=== PATIENT | female | born 1995 | race Caucasian/White ===

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

== ENCOUNTER 2017-02-08 03:14 | Emergency (ER) | payer OTHER ==
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
--- NOTE | 2017-02-08 05:20 | ED ORDER SUMMARY ---
..... Patient: BRIAN GARZA OrderSheet [facility] VisitID: [id number] [place] [address] 21y, F Registration Date/Time: 02/08/2017 ORDER SHEET Weight: 71.6 kg (stated) Allergies: No Known Drug Allergy GENERAL ORDERS: CT Abd/Pel w Cont (No) (N/A) Urgent (03:48 02/08/2017 Gaston Welch) (Ack 3:56 CHagerty ER Roller Repairer) (4:19 RFay) CBC w Diff Urgent (03:49 02/08/2017 Gaston Welch) (Ack 3:56 Kami ER Roller Repairer) (4:11 JQuivey R.N.) CMP Urgent (03:49 02/08/2017 Gaston Welch) (Ack 3:56 CHagerty ER Roller Repairer) (4:11 JQuivey R.N.) UA-Culture if indicated Urgent (03:49 02/08/2017 Gaston Welch) (Ack 3:56 CHagerty ER Roller Repairer) (4:11 JQuivey R.N.) PT with INR Urgent (03:49 02/08/2017 Gaston Welch) (Ack 3:56 CHagerty ER Roller Repairer) (4:11 JQuivey R.N.) PTT Urgent (03:49 02/08/2017 Gaston Welch) (Ack 3:56 CHagerty ER Roller Repairer) (4:11 JQuivey R.N.) Lipase Urgent (03:49 02/08/2017 Gaston Wlech) (Ack 3:56 CHagerty ER Roller Repairer) (4:11 JQuivey R.N.) Urine Urgent (03:49 02/08/2017 Gaston Welch) (Ack 3:56 CHagerty ER Roller Repairer) (4:11 JQuivey R.N.) Type & Screen Urgent (03:49 02/08/2017 Gaston Welch) (Ack 3:56 CHagerty ER Roller Repairer) (4:11 JQuivey R.N.) Pulse oximeter (03:49 02/08/2017 Gaston Welch) (4:11 JQuivey R.N.) Ice (03:49 02/08/2017 Gaston Welch) (3:51 JLay R.N.) MEDICATION ORDERS: Keflex PO 500 mg (NOW) (05:21 02/08/2017 Gaston Welch) (Ack 5:23 JQuivey R.N.) (5:37 JDeElena R.N.) IV FLUIDS: IV NS : initial bolus 1000 mL (1000 mL/hr), then none - for X1 (NOW) (03:49 02/08/2017 Gaston Welch) (Ack 3:51 JDeElena R.N.) (4:10 JQuivey R.N.) Morphine IV 4 mg (HIGH ALERT MEDICATION, NOW) (03:49 02/08/2017 Gaston Welch) (Ack 3:52 JDeElena R.N.) (4:11 JQuivey R.N.) ORDER SHEET NOTES: [Electronically signed by Charli Chun R.N. (05:37 02/08/2017)] [Electronically signed by Dandy Esquivel Dr. (05:39 02/08/2017)] [Electronically locked/signed by Charli Chun R.N. (05:37 02/08/2017)]
--- NOTE | 2017-02-08 05:20 | ED ORDER SUMMARY ---
..... Patient: BRIAN GARZA OrderSheet [facility] VisitID: [id number] [place] [address] 21y, F Registration Date/Time: 02/08/2017 ORDER SHEET Weight: 71.6 kg (stated) Allergies: No Known Drug Allergy GENERAL ORDERS: CT Abd/Pel w Cont (No) (N/A) Urgent (03:48 02/08/2017 Gaston Welch) (Ack 3:56 CHagerty ER Railroad Auditor) (4:19 RFay) CBC w Diff Urgent (03:49 02/08/2017 Gaston Welch) (Ack 3:56 Kami ER Railroad Auditor) (4:11 JQuivey R.N.) CMP Urgent (03:49 02/08/2017 Gaston Welch) (Ack 3:56 CHagerty ER Railroad Auditor) (4:11 JQuivey R.N.) UA-Culture if indicated Urgent (03:49 02/08/2017 Gaston Welch) (Ack 3:56 CHagerty ER Railroad Auditor) (4:11 JQuivey R.N.) PT with INR Urgent (03:49 02/08/2017 Gaston Welch) (Ack 3:56 CHagerty ER Railroad Auditor) (4:11 JQuivey R.N.) PTT Urgent (03:49 02/08/2017 Gaston Welch) (Ack 3:56 CHagerty ER Railroad Auditor) (4:11 JQuivey R.N.) Lipase Urgent (03:49 02/08/2017 Gaston Welch) (Ack 3:56 CHagerty ER Railroad Auditor) (4:11 JQuivey R.N.) Urine Urgent (03:49 02/08/2017 Gaston Welch) (Ack 3:56 CHagerty ER Railroad Auditor) (4:11 JQuivey R.N.) Type & Screen Urgent (03:49 02/08/2017 Gastno Welch) (Ack 3:56 CHagerty ER Railroad Auditor) (4:11 JQuivey R.N.) Pulse oximeter (03:49 02/08/2017 Gaston Welch) (4:11 JQuivey R.N.) Ice (03:49 02/08/2017 Gaston Welch) (3:51 JLay R.N.) MEDICATION ORDERS: Keflex PO 500 mg (NOW) (05:21 02/08/2017 Gaston Welch) (Ack 5:23 JQuivey R.N.) (5:37 JDeElena R.N.) IV FLUIDS: IV NS : initial bolus 1000 mL (1000 mL/hr), then none - for X1 (NOW) (03:49 02/08/2017 Gaston Welch) (Ack 3:51 JDeElena R.N.) (4:10 JQuivey R.N.) Morphine IV 4 mg (HIGH ALERT MEDICATION, NOW) (03:49 02/08/2017 Gaston Welch) (Ack 3:52 JDeElena R.N.) (4:11 JQuivey R.N.) ORDER SHEET NOTES: [Electronically signed by Charli Chun R.N. (05:37 02/08/2017)] [Electronically signed by Dandy Esquivel Dr. (05:39 02/08/2017)] [Electronically locked/signed by Charli Chun R.N. (05:37 02/08/2017)]
--- NOTE | 2017-02-08 05:39 | ED MED RECONCILIATION SUMMARY ---
Patient: BRIAN GARZA Medication Reconciliation Report [facility] VisitID: [id number] [place] [address] 21y, F Registration Date/Time: 02/08/2017 Weight: 71.6 kg Height/Length: 64 in. BMI: 27.1 ALLERGIES: No Known Drug Allergy The patient's Home Medications are listed below: CONTINUE TAKING THE FOLLOWING MEDICATIONS: Albuterol Sulfate Inhalation 2 puffs, PRN Migraine RANGEL medicine , pt can't remember name The source(s) of the original Home Medication information: patient The following Medications were given to the patient in the Emergency Department: IV NS IV Fluids bolus 0, then 1000 mL/hr, administered: 02/08/2017 4:01:00 AM Morphine [IVP] IVP 4 mg, administered: 02/08/2017 4:03:00 AM Keflex [PO] PO 500 mg, administered: 02/08/2017 5:30:00 AM The following Medications were prescribed to the patient: Motrin (available over the counter): take according to label instructions. -- Dandy Esquivel Dr. Cephalexin 500 mg: take 1 capsule orally every 8 hours for 5 days. No refill.(disp 15 caps) -- Dandy Esquivel Dr. [place] 5 mg / 325 mg tablets: take 1 orally. Dispense ten (10). No refill. Substitution is permissible. -- Dandy Esquivel Dr.
--- NOTE | 2017-02-08 05:39 | ED MED RECONCILIATION SUMMARY ---
Patient: BRIAN GARZA Medication Reconciliation Report [facility] VisitID: [id number] [place] [address] 21y, F Registration Date/Time: 02/08/2017 Weight: 71.6 kg Height/Length: 64 in. BMI: 27.1 ALLERGIES: No Known Drug Allergy The patient's Home Medications are listed below: CONTINUE TAKING THE FOLLOWING MEDICATIONS: Albuterol Sulfate Inhalation 2 puffs, PRN Migraine RANGEL medicine , pt can't remember name The source(s) of the original Home Medication information: patient The following Medications were given to the patient in the Emergency Department: IV NS IV Fluids bolus 0, then 1000 mL/hr, administered: 02/08/2017 4:01:00 AM Morphine [IVP] IVP 4 mg, administered: 02/08/2017 4:03:00 AM Keflex [PO] PO 500 mg, administered: 02/08/2017 5:30:00 AM The following Medications were prescribed to the patient: Motrin (available over the counter): take according to label instructions. -- Dandy Esquivel Dr. Cephalexin 500 mg: take 1 capsule orally every 8 hours for 5 days. No refill.(disp 15 caps) -- Dandy Esquivel Dr. [place] 5 mg / 325 mg tablets: take 1 orally. Dispense ten (10). No refill. Substitution is permissible. -- Dandy Esquivel Dr.
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
--- NOTE | 2017-02-08 05:39 | ED MAR SUMMARY ---
..... Medication Administration [facility] [address] [place] [address] Patient: BRIAN GARZA Visit ID: [id number] 21y, F Weight: 71.6 kg Height/Length: 64 in BMI: 27.1 ALLERGIES: No Known Drug Allergy Start 04:01 02/08/2017 Lam Escobedo RFaribaN., Stop 05:11 02/08/2017 Lam Escobedo R.N. Medication Administered: IV NS (SALINE), Dose: IV Fluids over 1 hour(s), Rate: 1000 mL/hr, Dispensed: 1000 mL bag, Site: #1 left AC. Medication Ordered: IV NS : initial bolus 1000 mL (1000 mL/hr), then none - for X1 (NOW). Given 04:03 02/08/2017 Lam Escobedo RKarlie Medication Administered: MORPHINE [IVP], Dose: 4 mg IVP over 2 minute(s), Site: #1 left AC. Medication Ordered: Morphine IV 4 mg (HIGH ALERT MEDICATION, NOW). Given 05:30 02/08/2017 Charli Chun R.N. Medication Administered: KEFLEX [PO] (CEPHALEXIN), Dose: 500 mg PO. Medication Ordered: Keflex PO 500 mg (NOW).
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
== END 2017-02-08 05:35 | disposition home or self-care (01) ==
LOC: ED SRH 03:14
DX: S16.1XXA Strain of muscle, fascia and tendon at neck level, initial encounter (principal); S09.90XA Unspecified injury of head, initial encounter; V43.61XA Car passenger injured in collision with sport utility vehicle in traffic accident, initial encounter; Y93.89 Activity, other specified; Y92.410 Unspecified street and highway as the place of occurrence of the external cause; Y99.9 Unspecified external cause status; N30.01 Acute cystitis with hematuria
CPT/HCPCS: 90001; 90004; 90100; 90155; 90469; 91004; 92235; 93070; 94001; 94060; 95059